=== PATIENT | female | born 1955 | race Caucasian/White ===

== ENCOUNTER 2023-12-12 06:57 | Emergency (ER) | payer MEDICARE ==
--- NOTE | 2023-12-12 07:26 | ERPHSYRPT ---
- History of Present Illness Time Seen by Provider: 12/12/23 07:02 Historian: patient Exam Limitations: no limitations Physician History: For the past 30 minutes pt has had constant sharp 6/10 mid chest pain; denies shortness of air, fever, cough, vomiting. Pt states she took 5 baby aspirin this morning. Aspirin Treatment Today: provided at home (81 mg x5) Allergies/Adverse Reactions: iodine Allergy (Verified 12/12/23 06:59) latex Allergy (Verified 12/12/23 06:59) Home Medications: Levothyroxine Sodium [Synthroid] 175 mcg PO DAILY 12/12/23 [History] hydroCHLOROthiazide [Hydrochlorothiazide] 37.5 mg PO DAILY 12/12/23 [History] - Review of Systems Constitutional: No Fever Respiratory: No Cough, No Dyspnea Cardiac: Chest Pain Abdominal/Gastrointestinal: No Vomiting - Nursing Vital Signs Nursing Vital Signs: Initial Vital Signs Temperature 98.1 F 12/12/23 07:19 Pulse Rate 69 12/12/23 07:19 Respiratory Rate 16 12/12/23 07:19 Blood Pressure 149/79 12/12/23 07:19 O2 Sat by Pulse Oximetry 96 12/12/23 07:19 Pain Scale Pain Intensity 4 - Physical Exam General Appearance: alert Eye Exam: eyes nml inspection Ears, Nose, Throat Exam: TMs normal, pharyngeal erythema Neck Exam: normal inspection Respiratory Exam: normal breath sounds Cardiovascular Exam: normal heart sounds Gastrointestinal/Abdomen Exam: normal bowel sounds Extremity Exam: pedal edema Neurologic Exam: alert, cooperative Skin Exam: warm, dry - Course EKG Interpreted by Me: RATE ([id number]), Sinus Rhythm, Left [place] Deviation, Other (QTc = 420, minimal ST depression in lateral leads.) - Radiology Exams Chest X-ray Interpretation: Teleradiologist Report (Bilateral diffuse prominent bronchial markings with peribronchial thickening, likely indication bronchitis, clinical correlation advised. Otherwise X-ray chest is unremarkable.) Ordered Tests: Active Orders 24 hr Category Date Time Status Support Dba STAT Care 12/12/23 07:24 Active EKG-ER Only STAT Care 12/12/23 07:21 Active EKG-ER Only STAT Care 12/12/23 08:39 Active IV Insertion STAT Care 12/12/23 07:21 Active Pulse Oximetry (ED) STAT Care 12/12/23 07:21 Active CHEST 2 VIEWS (PA AND LAT) Stat Exams 12/12/23 07:23 Completed AMYLASE Stat Lab 12/12/23 07:50 Completed CBC W DIFF Stat Lab 12/12/23 07:50 Completed CMP Stat Lab 12/12/23 07:50 Completed D-DIMER QUANTITATIVE Stat Lab 12/12/23 07:50 Completed LIPASE Stat Lab 12/12/23 07:50 Completed MAGNESIUM Stat Lab 12/12/23 07:50 Completed TROPONIN Q4H Lab 12/12/23 07:50 Completed TROPONIN Q4H Lab 12/12/23 11:30 Ordered TROPONIN Q4H Lab 12/12/23 15:30 Ordered UA W/RFX UR CULTURE Stat Lab 12/12/23 07:23 Ordered Medication Summary Generic Name Dose Route Start Last Admin Trade Name Freq PRN Reason Stop Dose Admin Sodium Chloride 1,000 mls @ 100 mls/hr 12/12/23 07:30 12/12/23 07:56 Sodium Chloride 0.9% 1000 Ml IV 01/11/24 07:29 100 mls/hr .Q10H LYLA Administration Discontinued Medications Generic Name Dose Route Start Last Admin Trade Name Freq PRN Reason Stop Dose Admin Ketorolac Tromethamine 30 mg 12/12/23 08:45 12/12/23 09:07 Ketorolac Tromethamine 30 Mg/Ml Inj IV 12/12/23 08:46 30 mg STAT ONE Administration Ketorolac Tromethamine Confirm 12/12/23 08:58 Ketorolac Tromethamine 30 Mg/Ml Inj Administered 12/12/23 08:59 Dose 30 mg .ROUTE .STK-MED ONE Morphine Sulfate 2 mg 12/12/23 08:14 12/12/23 08:31 Morphine Sulfate 2 Mg/Ml Inj IV 12/12/23 08:15 2 mg STAT ONE Administration Morphine Sulfate Confirm 12/12/23 08:27 Morphine Sulfate 2 Mg/Ml Inj Administered 12/12/23 08:28 Dose 2 mg .ROUTE .STK-MED ONE Nitroglycerin 0.4 mg 12/12/23 07:21 12/12/23 07:56 Nitroglycerin 0.4 Mg (Ed) 0.4 Mg Tab.Subl SL 12/12/23 07:22 0.4 mg STAT ONE Administration Nitroglycerin Confirm 12/12/23 07:54 Nitroglycerin 0.4 Mg (Ed) 0.4 Mg Tab.Subl Administered 12/12/23 07:55 Dose 0.4 mg SL .STK-MED ONE Lab/Rad Data: Laboratory Result Diagrams 12/12/23 07:50 12/12/23 07:50 Laboratory Results 12/12/23 12/12/23 12/12/23 Range/Units 07:50 07:50 07:50 WBC (4.0-10.5) x10^3/uL RBC (4.1-5.4) x10^6/uL Hgb (12.0-16.0) g/dL Hct (35-47) % MCV (78-100) fL MCH (26-32) pg MCHC (32-36) g/dL RDW (11.5-14.0) % Plt Count (150-450) x10^3/uL MPV (7.5-11.0) fL Gran % (36.0-66.0) % Immature Gran % (Auto) (0.00-0.4) % Nucleat RBC Rel Count (0.00-0.1) % Eos # (Auto) (0-0.5) x10^3/uL Immature Gran # (Auto) (0.00-0.03) x10^3u/L Absolute Lymphs (auto) (1.0-4.6) x10^3/uL Absolute Monos (auto) (0.0-1.3) x10^3/uL Absolute Nucleated RBC (0.00-0.01) x10^3u/L Lymphocytes % (24.0-44.0) % Monocytes % (0.0-12.0) % Eosinophils % (0.00-5.0) % Basophils % (0.0-0.4) % Absolute Granulocytes (1.4-6.9) x10^3/uL Basophils # (0-0.4) x10^3/uL D-Dimer (0.0-0.50) mg/L Sodium (135-145) mmol/L Potassium (3.5-5.1) mmol/L Chloride (98-107) mmol/L Carbon Dioxide (22-30) mmol/L Anion Gap (5-15) MEQ/L BUN (7-17) mg/dL Creatinine (0.52-1.04) mg/dL Estimated GFR ML/MIN Glucose (74-106) mg/dL Calcium (8.4-10.2) mg/dL Magnesium (1.6-2.3) mg/dL Total Bilirubin (0.2-1.3) mg/dL AST (14-36) U/L ALT (0-35) U/L Alkaline Phosphatase (38-126) U/L Troponin I 0.056 H* (0.000-0.033) ng/mL Serum Total Protein (6.3-8.2) g/dL Albumin (3.5-5.0) g/dL Amylase (30-110) U/L Lipase (23-300) U/L Influenza Type A Ag NEGATIVE (NEGATIVE) Influenza Type B Ag NEGATIVE (NEGATIVE) RSV (PCR) NEGATIVE (NEGATIVE) SARS-CoV-2 (PCR) NEGATIVE (NEGATIVE) Group A Strep Antibody NOT DETECTED (NEGATIVE) 12/12/23 12/12/23 12/12/23 Range/Units 07:50 07:50 07:50 WBC 8.2 (4.0-10.5) x10^3/uL RBC 5.22 (4.1-5.4) x10^6/uL Hgb 14.3 (12.0-16.0) g/dL Hct 44.5 (35-47) % MCV 85.2 (78-100) fL MCH 27.4 (26-32) pg MCHC 32.1 (32-36) g/dL RDW 14.6 H (11.5-14.0) % Plt Count 234 (150-450) x10^3/uL MPV 11.1 H (7.5-11.0) fL Gran % 61.1 (36.0-66.0) % Immature Gran % (Auto) 0.5 H (0.00-0.4) % Nucleat RBC Rel Count 0.0 (0.00-0.1) % Eos # (Auto) 0.34 (0-0.5) x10^3/uL Immature Gran # (Auto) 0.04 H (0.00-0.03) x10^3u/L Absolute Lymphs (auto) 1.97 (1.0-4.6) x10^3/uL Absolute Monos (auto) 0.76 (0.0-1.3) x10^3/uL Absolute Nucleated RBC 0.00 (0.00-0.01) x10^3u/L Lymphocytes % 24.2 (24.0-44.0) % Monocytes % 9.3 (0.0-12.0) % Eosinophils % 4.2 (0.00-5.0) % Basophils % 0.7 (0.0-0.4) % Absolute Granulocytes 4.98 (1.4-6.9) x10^3/uL Basophils # 0.06 (0-0.4) x10^3/uL D-Dimer 0.29 (0.0-0.50) mg/L Sodium 141 (135-145) mmol/L Potassium 4.0 (3.5-5.1) mmol/L Chloride 108 H (98-107) mmol/L Carbon Dioxide 29 (22-30) mmol/L Anion Gap 7.9 (5-15) MEQ/L BUN 25 H (7-17) mg/dL Creatinine 0.81 (0.52-1.04) mg/dL Estimated GFR 78.5 ML/MIN Glucose 122 H (74-106) mg/dL Calcium 9.2 (8.4-10.2) mg/dL Magnesium 2.1 (1.6-2.3) mg/dL Total Bilirubin 0.60 (0.2-1.3) mg/dL AST 18 (14-36) U/L ALT 15 (0-35) U/L Alkaline Phosphatase 70 (38-126) U/L Troponin I (0.000-0.033) ng/mL Serum Total Protein 6.1 L (6.3-8.2) g/dL Albumin 3.7 (3.5-5.0) g/dL Amylase 49 (30-110) U/L Lipase 33 (23-300) U/L Influenza Type A Ag (NEGATIVE) Influenza Type B Ag (NEGATIVE) RSV (PCR) (NEGATIVE) SARS-CoV-2 (PCR) (NEGATIVE) Group A Strep Antibody (NEGATIVE) - Progress Progress: unchanged Progress Note: 12/12/23 09:41 EKG @ 0912: rate = 59, sinus or ectopic atrial rhythm, minimal ST depression lateral leads. QTc = 429. Discussed with : Other (Spoke with Dr. Lion([id number]) who accepted pt for transfer to [facility] ER.) Counseled pt/family regarding: lab results, diagnosis, rad results Medical Desision Making - Diagnostic Testing Diagnostic test were ordered, analyzed, and reviewed by me: Yes Radiological Interpretation: Teleradiologist Report - Departure Departure Disposition: Transfer ([facility] ER) Clinical Impression: Chest pain, Elevated troponin, pharyngitis, non-strep Condition: Stable Critical Care Time: Yes Critical Care Time(excluding separately billable procedures): Critical 30-74 mins Referrals: DOCTOR,NO FAMILY [Primary Care Provider] - Follow up/PCP as directed
[2023-12-12 07:31] VITALS: TEMP 98.1
[2023-12-12] MEDS ORDERED: Sodium Chloride 0.9% 1000 ML 1,000 ML ONE (07:54)
[2023-12-12] MEDS ORDERED: Nitrostat 0.4 MG (ED) SL ONE (07:54)
[2023-12-12 07:55] LABS: Absolute Neutrophil Ct (ANC) 4.98 x10^3/uL (1.4-6.9); BASOPHIL % 0.7 % (0.0-0.4); Basophil (Absolute #) 0.06 x10^3/uL (0-0.4); Eosinophil % 4.2 % (0.00-5.0); Eosinophil (Absolute #) 0.34 x10^3/uL (0-0.5); Hematocrit 44.5 % (35-47); Hemoglobin 14.3 g/dL (12.0-16.0); IMMATURE GRAN # 0.04 x10^3u/L (0.00-0.03); IMMATURE GRAN % 0.5 % (0.00-0.4); Lymphocyte (Absolute #) 1.97 x10^3/uL (1.0-4.6); Lymphocytes % 24.2 % (24.0-44.0); Mean Cell Volume 85.2 fL (78-100); Mean Corpuscular Hemoglobin 27.4 pg (26-32); Mean Corpuscular Hgb Concent. 32.1 g/dL (32-36); Mean Platelet Volume 11.1 fL (7.5-11.0); Monocyte (Absolute #) 0.76 x10^3/uL (0.0-1.3); Monocytes % 9.3 % (0.0-12.0); Neutrophil % 61.1 % (36.0-66.0); Platelet Count 234 x10^3/uL (150-450); Red Blood Count 5.22 x10^6/uL (4.1-5.4); Red Cell Distribution Width 14.6 % (11.5-14.0); White Blood Count 8.2 x10^3/uL (4.0-10.5)
[2023-12-12] MEDS: Sodium Chloride 0.9% 1000 ML 1,000 ML IV SCH (07:56)
[2023-12-12] MEDS: Nitrostat 0.4 MG (ED) SL ONE (07:56)
--- NOTE | 2023-12-12 08:02 | XRAY ---
CLINICAL HISTORY: pain COMPARISON: None TECHNIQUE: X-ray of the chest was performed in frontal and lateral projection. FINDINGS: Bilateral diffuse prominent bronchial markings with peribronchial thickening. The lungs are well aerated. No hydrothorax or pneumothorax seen. No fracture seen. There is no evidence of any focal area of consolidation. The hilar and pulmonary vasculature is normal. The heart size is within normal limits. The costophrenic angles are clear. IMPRESSION: Bilateral diffuse prominent bronchial markings with peribronchial thickening, likely indicating bronchitis, clinical correlation advised. Otherwise, X-ray chest is unremarkable. Electronically Signed by: Benjy Yadav MD. (12/12/2023 07:58:14 EDT)
[2023-12-12] MEDS ORDERED: MORPHINE SULFATE 2 MG INJ ONE (08:27)
[2023-12-12] MEDS: MORPHINE SULFATE 2 MG INJ IV ONE (08:31)
[2023-12-12 08:33] LABS: INFLUENZA A NEGATIVE (NEGATIVE); INFLUENZA B NEGATIVE (NEGATIVE); RESPIRATORY SYNCTIAL VIRUS NEGATIVE (NEGATIVE); SARS-CoV-2 Xpert Express NEGATIVE (NEGATIVE)
[2023-12-12] MEDS ORDERED: TORAdol 30 mg Injection ONE (08:58)
[2023-12-12] MEDS: TORAdol 30 mg Injection IV ONE (09:07)
[2023-12-12 09:25] LABS: ALBUMIN 3.7 g/dL (3.5-5.0); ANION GAP 7.9 MEQ/L (5-15); BILIRUBIN,TOTAL 0.6 mg/dL (0.2-1.3); Calcium 9.2 mg/dL (8.4-10.2); Creatinine 1 0.81 mg/dL (0.52-1.04); EST GLOMERULAR FILTRATION RATE 78.5 ML/MIN; MAGNESIUM 2.1 mg/dL (1.6-2.3); Total Protein 6.1 g/dL (6.3-8.2)
[2023-12-12 11:23] VITALS: O2SAT 96
[2023-12-12 12:11] VITALS: BP 141/79; PULSE 65; RESP 21
== END 2023-12-12 12:14 | disposition short-term general hospital (02) ==
LOC: ED 06:57
DX: R07.9 Chest pain, unspecified (principal); R77.8 Other specified abnormalities of plasma proteins; J02.9 Acute pharyngitis, unspecified; Z79.899 Other long term (current) drug therapy; Z11.52 Encounter for screening for COVID-19
CPT/HCPCS: 0241U; 36000; 36415; 71046; 80053; 82150; 83690; 83735; 84484; 85025; 85379; 87651; 93005; 93041; 94760; 96374; 96375; 99284; 99291; J1885; J2270; A9270-GY